=== PATIENT | male | born 1960 | race Caucasian/White ===

== ENCOUNTER 2017-07-01 04:32 | Emergency (ER) | payer OTHER ==
[~2017-07-01] VITALS: Ht 180.3 cm; Wt 109.9 kg
[2017-07-01 04:36] VITALS: TEMP 36.8; Ht 180.3 cm; Wt 109.9 kg
[2017-07-01] MEDS ORDERED: MoRPHine SULFATE 10 MG/ML CARP/VIAL IV STA (04:52)
[2017-07-01] MEDS ORDERED: ONDANSETRON INJ 2 MG/ML 2 ML VIAL IV STA (04:52)
[2017-07-01] MEDS ORDERED: ATOR10TA88 PO (04:57)
[2017-07-01] MEDS ORDERED: LISI-729 PO (04:57)
[2017-07-01] MEDS ORDERED: FEXO1TAB58 PO (04:58)
[2017-07-01] MEDS ORDERED: SODIUM CHLORIDE 0.9% 1000ML 1,000 ML IV ONE (05:00)
[2017-07-01 05:41] LABS: BASO % 0.2 %; BASO ABS # 0.01 K/uL (0-0.2); COMPLETE YES; EOS % 3.2 %; HEMATOCRIT 34.4 % (42-52); IG% 0.4 %; LYMPH % 23.2 %; LYMPH ABS # 1.17 K/uL (1.2-3.4); MEAN CORPUSCULAR HEMOGLOBIN 32.2 pg (25-34); MEAN CORPUSCULAR HGB CONC 34.6 g/dl (32-36); MEAN PLATELET VOLUME 9.4 fL (7.4-10.4); MONO % 9.1 %; NEUT % 63.9 %; PLATELET COUNT 193 K/uL (130-400); WHITE BLOOD COUNT 5.04 K/uL (4.8-10.8)
[2017-07-01 06:03] LABS: BUN/CREATININE RATIO 16.7 (10-20); CREATININE 0.78 mg/dl (0.60-1.40); MAGNESIUM 2.1 mg/dl (1.8-2.4); POTASSIUM 3.6 mmol/L (3.5-5.1)
[2017-07-01 06:14] LABS: ALB/GLOB RATIO 1.1 (0.9-2); THYROID STIMULATING HORMONE 2.59 uIu/ml (0.300-4.500)
[2017-07-01 06:22] LABS: PROTHROMBIN TIME (PATIENT) 10.4 SECONDS (9.0-12.0)
[2017-07-01 06:37] VITALS: BP 115/72
--- NOTE | 2017-07-01 06:38 | DIAGNOSTIC IMAGING REPORT ---
HEAD WITHOUT CONTRAST (CT) CLINICAL HISTORY: 57 years-old Male with Severe left sided headache. TECHNIQUE: Multiple axial CT images of the head were obtained without contrast. A dose lowering technique was utilized adhering to the principles of ALARA. CT DOSE: 537.48 mGy.cm COMPARISON: None. FINDINGS: No acute intracranial hemorrhage, midline shift, mass, large territorial ischemia or abnormal extra-axial collection. The calvarium is intact. The mastoid air cells, and middle ear cavities are clear. There appears to have been prior bilateral maxillary antrostomy. Moderate mucosal thickening involves the imaged maxillary and ethmoid sinuses. Bilateral sphenoid sinus disease also noted. IMPRESSION: 1. No acute intracranial abnormality. 2. Moderate paranasal sinus disease. The above report was generated using voice recognition software. It may contain grammatical, syntax or spelling errors. Electronically signed by: Jesus Ashton M.D. 07/01/2017 6:37 AM Dictated Date/Time: 07/01/2017 6:35 AM
[2017-07-01] MEDS ORDERED: HYDR-5688 PO (06:51)
[2017-07-01] MEDS ORDERED: AMOX875T PO (06:51)
[2017-07-01] MEDS ORDERED: PRED20TA2 PO (06:51)
--- NOTE | 2017-07-01 06:58 | EMERGENCY ROOM VISIT NOTE ---
History First contact with patient: 04:42 Chief Complaint: HEADACHE Stated Complaint: DOESN'T FEEL RIGHT/ HEADACHE History of Present Illness The patient is a 57 year old male who presents to the Emergency Room with complaints of headache symptoms for the past 2 hours. The patient has had vague headaches symptoms over the past week, however they have significantly intensified over the past 2 hours. The patient states his symptoms are primarily left side and central face. The patient does have some sinus issues in the past, but has not been on antibiotics recently. The patient fever or chills. No neck pain, chest pain, chest tightness, shortness of breath, or abdominal pain. The patient does not have injury or trauma. He rates his discomfort a 7/10. Review of Systems More than 10 systems were reviewed and otherwise negative with the exception of history of present illness. Past Medical/Surgical History History of dyslipidemia and hypertension Family History No pertinent family history Social History Smoking Status: Never Smoker Housing Status: lives with significant other Occupation Status: employed Current/Historical Medications Scheduled Amoxicillin & Pot Clavulanate (Augmentin 875-125 mg), 1 TAB PO BID Atorvastatin (Lipitor), 1 TAB PO DAILY Fexofenadine-Pseudoephedrine (Jenniffer-D 24 Hour Allergy), 1 TAB PO DAILY Lisinopril (Zestril), 1 TAB PO DAILY Prednisone (Prednisone Tab), 2 TAB PO DAILY Scheduled PRN Hydrocodone/Acetaminophen 5MG/325MG ([place] 5MG/325MG), 1 TABLET PO Q6 PRN for Pain Physical Exam Vital Signs Date Time Temp Pulse Resp B/P (MAP) Pulse Ox O2 Delivery O2 Flow Rate FiO2 07/01/17 06:37 66 18 115/72 98 Room Air 07/01/17 04:36 36.8 61 18 143/95 97 Room Air Physical Exam VITALS: Vitals are noted on the nurse's note and reviewed by myself. Vital signs stable. GENERAL: Well-developed, well-nourished, white male, who is in no acute distress and resting comfortably. Patient is cooperative with the examination. HEAD: Normocephalic atraumatic. EARS: External ear normal. External auditory canals clear, tympanic membranes pearly matson without erythema or effusion bilaterally. EYES: Pupils equal round and reactive to light and accommodation. Conjunctivae without injection, sclerae without icterus. Extraocular movements intact. NOSE: Patent, turbinates without inflammation or discharge. MOUTH: Mucous membranes moist. Tonsils are not enlarged. Pharynx without erythema, blood, or exudate. Uvula midline. Airway patent. NECK: Supple without nuchal rigidity. No lymphadenopathy. No thyromegaly. Cervical spine is nontender. No meningismus. HEART: Regular rate and rhythm without murmurs gallops or rubs. LUNGS: Clear to auscultation bilaterally without wheezes, rales or rhonchi. No retractions or accessory muscle use. ABDOMEN: Positive normal bowel sounds x 4. Soft, nontender, without masses or organomegaly. No guarding or rebound tenderness. MUSCULOSKELETAL: No muscle atrophy, erythema, or edema noted. Full range of motion without joint tenderness in all extremities. NEURO: Patient was alert and oriented to person place and time. CN II through XII grossly intact. Medical Decision & Procedures ER Provider Diagnostic Interpretation: HEAD WITHOUT CONTRAST (CT) CLINICAL HISTORY: 57 years-old Male with Severe left sided headache. TECHNIQUE: Multiple axial CT images of the head were obtained without contrast. A dose lowering technique was utilized adhering to the principles of ALARA. CT DOSE: 537.48 mGy.cm COMPARISON: None. FINDINGS: No acute intracranial hemorrhage, midline shift, mass, large territorial ischemia or abnormal extra-axial collection. The calvarium is intact. The mastoid air cells, and middle ear cavities are clear. There appears to have been prior bilateral maxillary antrostomy. Moderate mucosal thickening involves the imaged maxillary and ethmoid sinuses. Bilateral sphenoid sinus disease also noted. IMPRESSION: 1. No acute intracranial abnormality. 2. Moderate paranasal sinus disease. Laboratory Results 07/01/17 05:01 Red Blood Count 3.70, Mean Corpuscular Volume 93.0, Mean Corpuscular Hemoglobin 32.2, Mean Corpuscular Hemoglobin Concent 34.6, Mean Platelet Volume 9.4, Neutrophils (%) (Auto) 63.9, Lymphocytes (%) (Auto) 23.2, Monocytes (%) (Auto) 9.1, Eosinophils (%) (Auto) 3.2, Basophils (%) (Auto) 0.2, Neutrophils # (Auto) 3.22, Lymphocytes # (Auto) 1.17, Monocytes # (Auto) 0.46, Eosinophils # (Auto) 0.16, Basophils # (Auto) 0.01 8/22/17 05:01 Test 07/01/17 05:01 07/01/17 05:09 White Blood Count 5.04 K/uL (4.8-10.8) Red Blood Count 3.70 M/uL (4.7-6.1) Hemoglobin 11.9 g/dL (14.0-18.0) Hematocrit 34.4 % (42-52) Mean Corpuscular Volume 93.0 fL (80-100) Mean Corpuscular Hemoglobin 32.2 pg (25-34) Mean Corpuscular Hemoglobin Concent 34.6 g/dl (32-36) Platelet Count 193 K/uL (130-400) Mean Platelet Volume 9.4 fL (7.4-10.4) Neutrophils (%) (Auto) 63.9 % Lymphocytes (%) (Auto) 23.2 % Monocytes (%) (Auto) 9.1 % Eosinophils (%) (Auto) 3.2 % Basophils (%) (Auto) 0.2 % Neutrophils # (Auto) 3.22 K/uL (1.4-6.5) Lymphocytes # (Auto) 1.17 K/uL (1.2-3.4) Monocytes # (Auto) 0.46 K/uL (0.11-0.59) Eosinophils # (Auto) 0.16 K/uL (0-0.5) Basophils # (Auto) 0.01 K/uL (0-0.2) RDW Standard Deviation 42.4 fL (36.4-46.3) RDW Coefficient of Variation 12.6 % (11.5-14.5) Immature Granulocyte % (Auto) 0.4 % Immature Granulocyte # (Auto) 0.02 K/uL (0.00-0.02) Prothrombin Time 10.4 SECONDS (9.0-12.0) Prothromb Time International Ratio 1.0 (0.9-1.1) Activated Partial Thromboplast Time 25.8 SECONDS (21.0-31.0) Partial Thromboplastin Ratio 1.0 Anion Gap 7.0 mmol/L (3-11) Est Creatinine Clear Calc Drug Dose 130.1 ml/min Estimated GFR () 115.3 Estimated GFR (Non- 99.5 BUN/Creatinine Ratio 16.7 (10-20) Calcium Level 8.0 mg/dl (8.5-10.1) Magnesium Level 2.1 mg/dl (1.8-2.4) Total Bilirubin 0.2 mg/dl (0.2-1) Aspartate Amino Transf (AST/SGOT) 22 U/L (15-37) Alanine Aminotransferase (ALT/SGPT) 35 U/L (12-78) Alkaline Phosphatase 85 U/L (45-117) Total Protein 6.5 gm/dl (6.4-8.2) Albumin 3.4 gm/dl (3.4-5.0) Globulin 3.1 gm/dl (2.5-4.0) Albumin/Globulin Ratio 1.1 (0.9-2) Thyroid Stimulating Hormone (TSH) 2.590 uIu/ml (0.300-4.500) Bedside Troponin I < 0.030 ng/ml (0-0.045) Medications Administered Medications (Trade) Dose Ordered Sig/Aletha Route Start Time Stop Time Status Last Admin Dose Admin Morphine Sulfate (MoRPHine SULFATE INJ) 8 mg NOW STAT IV 07/01/17 04:52 07/01/17 04:55 DC 07/01/17 05:02 8 MG Sodium Chloride 1,000 ml @ 999 mls/hr Q1H1M ONCE IV 07/01/17 05:00 07/01/17 06:00 DC 07/01/17 05:02 999 MLS/HR Ondansetron HCl (Zofran Inj) 4 mg NOW STAT IV 07/01/17 04:52 07/01/17 04:55 DC 07/01/17 05:02 4 MG ED Course Physical exam and history were performed. Nursing notes, EMR, and Medication List were personally reviewed. Patient appears to have left-sided headache symptoms that are acutely worse over the past 2 hours. The patient is not well known to us, and certainly does not appear toxic on examination. He does not have signs of meningitis or encephalitis. Because of his symptoms I did elect to establish IV access and draw labs. CT scan was performed. The patient was hydrated and medicated as above. The patient's blood work is as above and was reviewed. He does not have a significantly elevated white blood cell count, her significant, bandemia, or significant electrolyte imbalance. Transaminases are nondiagnostic. Troponin was negative. CT scan does not show a bleed or mass. He does have a relatively significant sinus disease, including findings in the ethmoid sinus. I discussed case with attending physician, Dr. Hall. The patient does seem stable for discharge home and he was able to sleep quite comfortably here in the emergency department. I suspect that his symptoms are related to sinusitis , and will give him a course of Augmentin, prednisone, and Vicodin. The patient was asked to follow with his PCP in the next few days for recheck. Certainly minimal to the ER with any new, worsening, or concerning symptoms. The chart was completed utilizing [employer] Speech Voice Recognition Software. Grammatical errors, random word insertions, pronoun errors, and incomplete sentences are an occasional consequence of this system due to software limitations, ambient noise, and hardware issues. Any formal questions or concerns about the content, text, or information contained within the body of this dictation should be directly addressed to the provider for clarification. . Medical Decision The differential diagnosis includes, but is not limited to: acute intracranial bleed, meningitis, encephalitis, mass or mass effect, sinusitis, infection, tumor, headache, temporal arteritis and carbon monoxide exposure, and migraine. Medication Reconcilliation Current Medication List: was personally reviewed by me Blood Pressure Screening Blood pressure disposition: Elevated BP felt to be situational Impression Primary Impression: Headache Additional Impression: Sinusitis Departure Information Dispostion Home / Self-Care Condition GOOD Prescriptions Hydrocodone/Acetaminophen 5MG/325MG ([place] 5MG/325MG) Tab 1 TABLET PO Q6 Y for Pain, #12 TAB For Initial Treatment Prov: Chato Golden PA-C 07/01/17 Prednisone (Prednisone Tab) 20 Mg Tab 2 TAB PO DAILY for 5 Days, #10 TAB Prov: Chato Golden PA-C 07/01/17 Amoxicillin & Pot Clavulanate (Augmentin 875-125 mg) 1 Tab Tab 1 TAB PO BID for 10 Days, #20 TAB Prov: Chato Golden PA-C 07/01/17 Forms HOME CARE DOCUMENTATION FORM, IMPORTANT VISIT INFORMATION Patient Instructions My [facility] Additional Instructions You were seen and evaluated today on an emergency basis only. This is not a substitute for, or an effort to provide, complete comprehensive medical care. It is not possible to recognize and treat all injuries or illnesses in a single emergency department visit. For this reason it is recommended that you followup with your primary care physician this week for ongoing care and evaluation. Amoxicillin Clavulanate (Augmentin) 875mg: Take one pill twice daily for 10 days for your infection. All antibiotics can cause diarrhea. If this occurs and you feel worse or it does not resolve in 1-2 days follow up with your doctor or return to the Emergency Department as this could be signs of serious underlying problems. Any medication can cause an allergic reaction, stop the pills immediately and return to the ER for rash, hives, breathing difficulties, or swelling. Take prednisone daily for the next 5 days. For baseline pain relief you may alternate ibuprofen and acetaminophen every 4 hours for pain control. Take 600 mg ibuprofen (Advil) and then 4 hours later take 1000 mg acetaminophen (Tylenol). Do not take more than 3000 mg acetaminophen in a single day. [place] (hydrocodone/acetaminophen) 5/325 mg every 6 hours as needed for worsening breakthrough pain. Do not drink or drive on [place]. This medication will likely make you tired. Do not take [place] and Tylenol at the same time as both contain acetaminophen. [place] may cause constipation. You may wish to take an [id number]-[id number]-albpxyl stool softener like Colace if this occurs. You are welcome to return to the emergency department anytime with new, worsening, or concerning symptoms. Problem Qualifiers
[2017-07-01 07:00] LABS: LYME DISEASE AB IGG NEG (NEG); LYME DISEASE AB IGM NEG (NEG)
[2017-07-01 07:03] VITALS: PULSE 58; O2SAT 96
== END 2017-07-01 07:04 | disposition home or self-care (01) ==
LOC: C.EDB 04:33
DX: J32.9 Chronic sinusitis, unspecified (principal); E78.5 Hyperlipidemia, unspecified; I10 Essential (primary) hypertension; Z79.899 Other long term (current) drug therapy

== ENCOUNTER 2024-07-25 16:55 | Observation (INO) ==
--- OUTSIDE RECORDS SUMMARY | 2024-07-25 17:01 | External Medical Summary | Summary of Care ---
Author Name Unknown Organization [facility] Address [address] [place] [address] Phone [phone] Care Team Providers Care Tube Backer Name Role Phone Ladarius Martinez DO Primary Care Provider [phone] Reason for Visit * Reason Onset Date Comments Appointment 07/23/2024 Encounter Details Date Type Department Care Team (Late st Contact Info) Description 07/23/2024 Telephone Family Practice [facility] [place] [address] [facility] [place] [address] Ladarius Martinez DO [address] [facility] [place] [address] Appointment Allergies Active Allergy Reactions Criticality Noted Date Comments Cat Dander 12/07/2015 Pollen 12/07/2015 documented as of this encounter (statuses as of 07/23/2024) Medications Medication Sig Dispensed Refills Start Date End Date Status ASPIRIN 81 MG PO TABS one pill each day 05/17/2014 Active Multiple Vitamins-Minerals (MULTIVITAMIN ADULT EXTRA C) CHEW 11/26/2018 Active Sildenafil Citrate 20 MG Oral Tablet (Revatio)Indications:Vascu logenic erectile dysfunction, unspecified vasculogenic erectile dysfunction type Use 1-5 tablets as needed as directed for ED./ No more then 5 tablets in 1 day 30 Tab 3 08/20/2021 Active Testosterone Cypionate 200 MG/ML Intramuscular Solution (Depotestosterone Cypionate) Inject into a large muscle 200 mg every 30 days . 1 mL 5 09/05/2022 Active Tadalafil 5 MG Oral Tablet (Cialis) Take 1 Tablet by mouth daily as needed for Erectile Dysfunction. 30 Tablet 6 12/20/2022 Active diazePAM 2 MG Oral Tablet (Valium)Indications:Primar y insomnia TAKE 1 TABLET BY MOUTH AT BEDTIME NEEDED FOR ANXIETY OR SLEEP. 30 Tablet 02/10/2023 Active Fexofenadine HCl 180 MG Oral Tablet (Jenniffer) Take 1 Tablet by mouth in the morning. Active Losartan Potassium 50 MG Oral Tablet (Cozaar) Take 1 Tablet by mouth in the morning and 1 Tablet before bedtime. 03/27/2023 Active Amoxicillin-Pot Clavulanate 875-125 MG Oral Tablet (Augmentin)Indications:Acu te sinusitis, recurrence not specified, unspecified location Take 1 Tablet by mouth in the morning and 1 Tablet before bedtime. 20 Tablet 01/14/2024 Active Acetaminophen-Codeine 300-30 MG Oral Tablet Take 1 Tablet by mouth every 4 hours as needed for Moderate Pain. May take 2 tablets for severe pain. 10 Tablet 1 01/14/2024 Active Pravastatin Sodium 40 MG Oral Tablet (Pravachol)Indications:Pur e hypercholesterolemia TAKE 1 TABLET BY MOUTH EVERY DAY 90 Tablet 1 06/24/2024 Active Hospital, Clinic, or Other Facility Administered Medication Ordered Dose Route Frequency Start Date End Date Status Testosterone Cypionate (Depotestosterone Cypionate) 200 MG/ML inj 200 mgIndications:Low testosterone in male 200 mg IM [id number] 11/01/2022 10/20/2024 Acti ve Testosterone Cypionate (Depotestosterone Cypionate) 200 MG/ML inj 200 mgIndications:Low testosterone in male 200 mg IM [id number] 10/07/2023 09/26/2025 Acti ve documented as of this encounter (statuses as of 07/23/2024) Active Problems Problem Noted Date Diagnosed Date Digital mucinous cyst of finger of right hand Prediabetes 12/23/2017 Overview: Per Prediabetes protocol #1 Pure hypercholesterolemia 09/25/2016 Obesity, Class I, BMI 30.0-34.9 (see actual BMI) 08/22/2015 Overview: bmi= 33.34 08/22/15 Dyslipidemia, goal LDL below 100 08/22/2015 Chronic rhinitis 08/22/2015 Neoplasm of uncertain behavior of skin 5 Actinic keratosis 12/24/2012 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 The worse level is L4-5 where he has a right-sided lateral disk protrusion. HTN, goal below 140/90 documented as of this encounter (statuses as of 07/23/2024) Resolved Problems Problem Noted Date Diagnosed Date Resolved Date Pain in the shins 08/22/2015 09/23/2016 Routine medical exam 05/17/2014 016 Obesity, Class I, BMI 30.0-3 4.9 (see actual BMI) 03/25/2013 09/23/2016 Overview: BMI= 33.35 03/25/13 Screening for colorectal cancer 03/25/2013 09/23/2016 Special screening for malign ant neoplasm of prostate 03/25/2013 09/23/2016 Chronic sinusitis 10/09/2012 08/22/2015 Dysfunction of eustachian tube 10/09/2012 09/23/2016 Obesity, Class I, BMI 30.0-3 4.9 (see actual BMI) 09/17/2012 09/23/2016 Overview: bmi= 33.08 09/17/12 Obesity, Class I, BMI 30.0-3 4.9 (see actual BMI) 09/17/2012 09/23/2016 Overview: bmi= 33.08 09/17/12 Testicular hypofunction 09/17/201207/12 Obesity, BMI 33.58 09/23/11 09/23/2011 09/23/2016 Screening for prostate cancer 09/23/2011 09/23/2016 Vaccination not carried out because of patient refusal 09/23/2011 08/22/2015 Testicular hypofunction 03/27/201006/2012 OBESITY, BMI= 33.43 03/26/10 03/26/2010 09/23/2016 Special screening for malign ant neoplasms, colon 03/26/2010 08/22/2015 Organic sleep disorder 03/26/201008/22 OBESITY, BMI 30-34 (SEE ACTUAL BMI) 02/01/2010 09/23/2016 Overview: Per Obesity Taxonomy Dyslipidemia, goal to be determined 10/26/2009 03/26/2010 Overview: Per Lipid Taxonomy. first dx'd in . started lipitor 10 on 11/14. 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 ELEV TRANSAMINASE-LDH 11/19/20042014 Overview: possibly related to recent etho use prior to test. MIXED HYPERLIPIDEMIA(aka HYPERCHOLESTEROLEMIA) 11/19/2004 10/26/2009 Overview: Per Lipid Taxonomy. first dx'd in . started lipitor 10 on 11/14. Family history of other card iovascular diseases 11/19/2004 08/22/2015 Overview: negative, stress echo on 11/14. ICD-10 update of inactive term High-risk sexual behavior 11/19/2004 Overview: hiv negative. Mixed dyslipidemia 11/19/2004 6 Overview: DX IN documented as of this encounter (statuses as of 07/23/2024) Immunizations Name Administration Dates Next Due COVID-19 mRNA, LNP-s, No Pre serve, 2-Dose Series (Pfizer) 02/15/2021,01/25/2021 Seasonal Influenza, PF, 6 M & above, IM , (FluLaval or Fluzone) 07/28/2020,09/05/2017 Seasonal Influenza, Quadrivalent, No Preserve, I M 09/23/2016,08/22/2015 Seasonal Influenza, Trivalen t, (IIV3), with Preserv, (Fluzone) 09/17/2012,09/23/2011 TDAP (age 10 and older)(Boostrix) 07/06/2021 TDAP, Age 7 and older, IM (Adacel) 03/26/2010 documented as of this encounter Social History Tobacco Use Types Packs/Day Years Used Date Smoking Tobacco: Never Smokeless Tobacco: Never Alcohol Use Standard Drinks/Week Comments Yes 0 (1 standard drink = 0.6 oz pure alcohol) 1 bottles of wine per week, 2 beers per week PHQ-2 Answer Date Recorded PHQ-2 Score 0 09/16/2018 Utilities Answer Date Recorded Do you have trouble paying y our heating, water, or electric bill? (Adult - for ages 18 years and over) Not on file 04/27/2024 Is your family able to pay t he heat, water, or electric bill? (Household - for ages 0-17 years) Not on file 04/27/2024 Does your family have access to good internet? (Household - for ages 0-17 years) Not on file 04/27/2024 Social Connections Answer Date Recorded How often do you feel lonely or isolated from those around you? (Adult - for ages 18 years and over) Not on file 04/27/2024 Sex and Gender Information Value Date Recorded Sex Assigned at Not on file Gender Identity Not on file Sexual Orientation Not on file Job Start Date Occupation Industry Not on file Not on file Not on file documented as of this encounter Miscellaneous Notes * Telephone Encounter - Ladarius Martinez DO - 07/23/2024 2:57 PM EDT Excellent advice * Telephone Encounter - Claudia Kirk RN - 07/23/2024 2:37 PM EDT Provider to address: called and spoke with patient. Patient on way home from [place], would like to be evaluated for what he thinks is a hernia at his belly button. Patient states it's been there for about a month or so but in the last 3 days has gotten bigger and painful when he moves and hasgotten more red at the sight. 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 I advised patient that CC may be best as he can walk in, patient agreeable. Reason for Call: Appointment Contact: Telephone Call Contact Type: Advice Provider In-Basket: No Outcome: see above Face to face time spent with Patient (minutes): 0 Total Time including non face to face (minutes): 20 * Telephone Encounter - Ericka Escalona OSA - 07/23/2024 1:09 PM EDT No Appointments Available Patient declined appointments?: No What Visit Type is needed? Acute If Acute Visit Type is needed, were surrounding clinics offered to patient (Yes/No)? No, explain Noappts avail anywhere Was patient offered appointments with other available providers (Yes/No)? No, explain No appts Avail See Call Details? (Yes or No): Yes documented in this encounter Plan of Treatment Scheduled Procedures Name Priority Associated Diagnoses Date/Ti me COLONOSCOPY FLEXIBLE PROXIMAL DIAGNOSTIC Recall History of colon polyps Health Maintenance Due Date Last Done Comments Albumin/Creatinine Ratio 1977 Cologuard 2004 Fecal Occult Blood Test 2004 Sigmoidoscopy 2004 Zoster Vaccines (1 of 2) 2009 Depression Screening 06/29/2019 06/29/2018, 08/22/2015 (Discussed) GFR 05/21/2023 05/21/2022, 06/10, 07/18/2020, Additional history exists Pneumococcal Vaccine: 65+ Years (1 of 1 - PCV) 2024 HbA1c 03/27/2024 03/27/2023, 05/10, 07/18/2020, Additional history exists COVID-19 Vaccine (3 - season) 2024 02/15/2021, 01/25/2021 Influenza Vaccine (FLU shot) (#1) 2024 07/28/2020, 09/05/2017, 09/23/2016, Additional history exists Colonoscopy 10/17/2026 10/17/2021, 06/2021, 08/12/2016, Additional history exists Colorectal Cancer Screening 10/17/2026 Lipid Panel 04/01/2029 04/01/2024, 05/10, 06/28/2021, Additional history exists DTap/Tdap Vaccines (3 - Td or Tdap) 07/06/2031 07/06/2021, 03/26/2010 Hepatitis B Vaccine Completed 10/16/2005, 04/11/2005, 02/26/2005 RETIRED - COLONOSCOPY-EVERY 5 YRS AGES 18-100 Discontinued 10/17/2021, 10/17/2021, 08/12/2016, Additional history exists HPV (Gardasil) Vaccine Aged Out No lo nger eligible based on patient's age to complete this topic MENINGOCOCCAL (MENACTRA/MENVEO) Aged Out No longer eligible based on patient's age to complete this topic documented as of this encounter Medical Devices Not on filedocumented as of this encounter Care Teams Tube Backer Relationship Specialty Start Date End Date Ladarius Martinez DO [address] [place] [address] PCP - General Family Medicine 2/11/16 documented as of this encounter
[2024-07-25 17:53] LABS: Basophils # (auto) 0.02 K/uL (0.00-0.20); Basophils % (auto) 0.4 %; Eosinophils # (auto) 0.06 K/uL (0.00-0.50); Eosinophils % (auto) 1.2 %; Hemoglobin 14.3 g/dl (14.0-18.0); Immature Granulocytes # (auto) 0.01 K/uL (0.01-0.20); Immature Granulocytes % (auto) 0.2 %; Lymphocytes # (auto) 1.27 K/uL (1.20-3.40); Lymphocytes % (auto) 24.4 %; Mean Corpuscular Volume 90.9 fL (80.0-100.0); Mean Platelet Volume 9.2 fL (9.4-12.4); Monocytes # (auto) 0.46 K/uL (0.11-0.59); Monocytes % (auto) 8.8 %; Neutrophils # (auto) 3.39 K/uL (1.40-6.50); Platelet Count 179 K/uL (130-400); RDW Standard Deviation 39.7 fL (36.4-46.3); Red Blood Count 4.62 M/uL (4.70-6.10); White Blood Count 5.21 K/ul (4.8-10.8)
--- NOTE | 2024-07-25 17:56 | Communication Note ---
Date of Service: July 25, 2024 patient with incarcerated umbilical hernia, offered repair friday morning, however couldn't stay. Will plan for repair tomorrow. No indication for emergent repair. Admit to medicine, npo after midnight.
--- NOTE | 2024-07-25 18:09 | Emergency Department Note ---
Impression & Plan Incarcerated umbilical hernia, Cellulitis ED Provider Note NAME: TREVA GAITAN AGE: 64 SEX: M : 1960 ARRIVES VIA: Walk-In INFORMANT: [Patient] ED PROVIDER(S): [Delfino Pryor MD] CHIEF COMPLAINT: Infection HISTORY OF PRESENT ILLNESS: The patient is a 64-year-old male who presents to the ER for a repeat evaluation. The patient was diagnosed a few days ago with an incarcerated umbilical hernia and a localized cellulitis. He was initially going to be admitted for surgery the following day however, he chose to go home as he had obligations he could not forego. The patient was prescribed Augmentin at discharge. The patient has been taking his meds as prescribed. His pain is actually improved and he feels like he has more energy. There has been no fever. No vomiting. The patient presents back today stating that he is now able to undergo admission and surgical intervention. PMHx/PSHx/Social Hx: See Below PHYSICAL EXAM: GENERAL: Patient is in no acute distress. HEENT: No acute trauma, normocephalic atraumatic, mucous membranes moist, no nasal congestion. NECK: No stridor, no adenopathy, no meningismus, trachea is midline. LUNGS: Clear to auscultation bilaterally, no wheeze, no rhonchi, breath sounds equal. HEART: Without murmurs gallops or rubs, regular rate and rhythm. ABDOMEN: Soft, patient does have an erythematous, tender umbilical protrusion. This is quite firm and warm to the touch. The size is around 3 to 4 cm. Surrounding this lesion is a localized cellulitis about 6 or 8 cm in its greatest diameter. EXTREMITIES: No cyanosis, full range of motion of all the joints without pain or difficulty. NEUROLOGIC: Oriented x 3, no acute motor or sensory deficits, no focal weakness. SKIN: No jaundice, no diaphoresis. DIFFERENTIAL DIAGNOSIS: Bowel obstruction, cellulitis, incarcerated hernia, among others. EMERGENCY DEPARTMENT PROCEDURES: MEDICAL DECISION MAKING: There is no leukocytosis or concerning anemia. There is a normal platelet count. No renal failure or significant electrolyte abnormality. Lactic acid level is not elevated making severe sepsis less likely. On exam, the patient was not febrile or toxic. He had an incarcerated umbilical hernia with some surrounding cellulitis. The patient had presented back to the ED after being seen a few days ago. His presentation was similar. The patient is in need of surgical intervention. I did speak with general surgery. The patient is to be admitted to the medical service and will likely undergo surgical intervention tomorrow. The patient was given IV saline for hydration. He received 1 L. He was given IV Zosyn as antibiotic coverage. I did speak with case management, the on-call hospitalist was consulted. Prior/Outside records/notes reviewed: None Imaging/x-ray results per my interpretation: Chronic Medical/Social conditions affecting care: Care/Management discussed with: General Surgery-Dr. Herbert. Case management and the on-call hospitalist. Level of care consideration(s): After review of the information above and other included data: --I believe the patient requires escalation of care to admission DISPOSITION: Admission Past Med/Surg History Problem List (Updated 07/25/24 @ 22:55 by Delfino Pryor MD) Cellulitis (Acute) Incarcerated umbilical hernia (Acute) Cellulitis (Acute) Incarcerated umbilical hernia (Acute) Chest tightness Atypical chest pain Coronary artery calcification Ascending aorta dilatation LVH (left ventricular hypertrophy) Hypercholesterolemia Chest pain syndrome Dyspnea on exertion Medical History Anxiety Hypertension Social History Smoking Status: Never smoker Second Hand Exposure: No; Do You Dip or Chew Tobacco: No; Tobacco Cessation Education Requested by Patient: No Hx Alcohol Use: Yes Alcohol type: beer Hx Substance Use: No Preferred Language: Egyptian Communication Ability: Effective Local Hazmat Driver Required: No Beliefs That Will Affect Care: None Current Living Situation: Significant Other Other Information That Helps Us Care for You: No Feels Safe at Home: Yes Safety Concerns: Feels Safe At This Time Assistive Devices: Glasses and Hospital Bed Allergies Allergies Allergy/AdvReac Type Severity Reaction Status Date / Time No Known Allergies Allergy Unverified 04/01/24 11:49 Home Meds Home Medications Medication Instructions Recorded Confirmed aspirin 81 mg tablet,delayed 81 mg PO DAILY 05/02/23 04/01/24 release (Adult Low Dose Aspirin) fexofenadine 180 mg tablet 180 mg PO DAILY 05/02/23 04/01/24 (Jenniffer Hives) multivitamin 1 tab PO DAILY 05/02/23 04/01/24 pravastatin 40 mg tablet 40 mg PO DAILY 05/02/23 04/01/24 sildenafil (pulm.hypertension) 20 20 mg PO TID 05/02/23 04/01/24 mg tablet (Revatio) tadalafil 5 mg tablet (Cialis) 5 mg PO DAILY PRN 05/02/23 04/01/24 testosterone cypionate 200 mg/mL 200 mg subcut Q30D 05/02/23 04/01/24 intramuscular oil (Depo-Testosterone) Previous Rx's Medication Instructions Recorded evolocumab 140 mg/mL subcutaneous 140 mg subcut .every 2 weeks #6 mL 04/01/24 pen injector (Sharmila Mclain) lorazepam 1 mg tablet 1 mg PO Q12H PRN anxiety #60 tabs 04/01/24 losartan 100 mg tablet 100 mg PO DAILY #90 tabs 06/07/24 amoxicillin 875 mg-potassium 1 tab PO BID #20 tabs 07/24/24 clavulanate 125 mg tablet Results & Data (ED) Vital Signs Vital Signs - 24 hr 07/25/24 17:04 07/25/24 17:39 07/25/24 18:22 Temperature 36.6 C Temperature Source Temporal Artery Scan Pulse Rate 80 72 Pulse Rate [Apical] 65 Pulse Strength [Apical] Normal Respiratory Rate 20 14 Respiratory Effort / Characteristics Non-Labored Spontaneous Non-Labored Spontaneous Respiratory Depth Normal Normal Respiratory Pattern Regular Blood Pressure 126/85 Blood Pressure [Left Arm] 124/71 Blood Pressure Mean 98 Blood Pressure Mean [Left Arm] 88 Pulse Oximetry 93 94 Oxygen Delivery Method Room Air Room Air Sepsis Recent Fever Within 48 Hours No Sepsis New/Unexplained Change in Mental Status No Sepsis Action Taken by Nursing No Action Required Home Medications Current Medication List: was personally reviewed by me Laboratory Data Attestation: I reviewed the patient's lab results. 07/25/24 17:31 07/25/24 17:31 Lab Results 07/25/24 Range/Units 17:31 WBC 5.21 (4.8-10.8) K/ul RBC 4.62 L (4.70-6.10) M/uL Hgb 14.3 (14.0-18.0) g/dl Hct 42.0 (42.0-52.0) % MCV 90.9 (80.0-100.0) fL MCH 31.0 (25.0-34.0) pg MCHC 34.0 (32.0-36.0) g/dL RDW Std Deviation 39.7 (36.4-46.3) fL RDW Coeff of Shayy 12.0 (11.5-14.5) % Plt Count 179 (130-400) K/uL MPV 9.2 L (9.4-12.4) fL Immature Gran % (Auto) 0.2 % Neut % (Auto) 65.0 % Lymph % (Auto) 24.4 % [place] % (Auto) 8.8 % Eos % (Auto) 1.2 % Baso % (Auto) 0.4 % Neut # (Auto) 3.39 (1.40-6.50) K/uL Lymph # (Auto) 1.27 (1.20-3.40) K/uL [place] # (Auto) 0.46 (0.11-0.59) K/uL Eos # (Auto) 0.06 (0.00-0.50) K/uL Baso # (Auto) 0.02 (0.00-0.20) K/uL Immature Gran # (Auto) 0.01 (0.01-0.20) K/uL Sodium 139 (136-145) mmol/L Potassium 4.0 (3.5-5.1) mmol/L Chloride 105 (98-107) mmol/L Carbon Dioxide 25 (21-32) mmol/L Anion Gap 9 (3-11) BUN 10 (6-23) mg/dl Creatinine 0.81 (0.6-1.4) mg/dl Est Cr Clr Drug Dosing 112.8 ml/min Est GFR ( Amer) 108.1 ml/min Est GFR (Non-Af Amer) 93.3 ml/min BUN/Creatinine Ratio 12.3 (10-20) Glucose 98 (70-99(Fasting)) mg/dl Lactate 1.0 (0.4-2.0) mmol/L Calcium 9.6 (8.6-10.3) mg/dl Administered Medications Heparin Sodium (Porcine) (Heparin Sod 5,000 Unit/0.5 Ml Vial) 5,000 units SQ Q12 AMADEO Stop: 08/24/24 20:59 Last Admin: 07/25/24 21:10 Dose: Not Given Documented By: MARICEL Sodium Chloride (Nss) 1,000 mls @ 125 mls/hr IV .Q8H AMADEO Stop: 08/24/24 19:29 Last Admin: 07/25/24 20:20 Dose: 125 mls/hr Documented By: JAMI Piperacillin Sod/Tazobactam Sod (Zosyn) 4.5 gm in 100 mls @ 25 mls/hr IV Q8H AMADEO Stop: 08/04/24 23:29 Last Admin: 07/25/24 22:35 Dose: 25 mls/hr Documented By: MARICEL Lorazepam (Lorazepam 1 Mg Tab) 1 mg PO Q12H PRN PRN Reason: anxiety Stop: 08/24/24 21:01 Last Admin: 07/25/24 21:13 Dose: 1 mg Documented By: MPS Discontinued Medications Sodium Chloride (Nss) 1,000 mls @ 999 mls/hr IV .Q1H1M ONE Stop: 07/25/24 18:01 Last Infusion: 07/25/24 19:19 Dose: Infused Documented By: Admin: 07/25/24 18:18 Dose: 999 mls/hr Documented By: JAMI Piperacillin Sod/Tazobactam Sod (Zosyn) 4.5 gm in 100 mls @ 200 mls/hr IV NOW ONE Stop: 07/25/24 18:38 Last Infusion: 07/25/24 19:19 Dose: Infused Documented By: Admin: 07/25/24 18:22 Dose: 200 mls/hr Documented By: JAMI Discharge Plan Visit Data Chief Complaint: Infection Stated Complaint: SUPPOSED TO HAVE SURG, HERNIA/INFECTED ED Provider: Delfino Pryor Discharge Problem: Incarcerated umbilical hernia, Cellulitis Patient Disposition: Admitted As Inpatient Condition: Fair Discharge Instructions Interventions: ED Discharge Assessment Last Done: 07/25/24 20:36 Discharge Problem: Cellulitis Qualifiers: Site of cellulitis: trunk Site of cellulitis of trunk: umbilicus Qualified Code(s): L03.316 - Cellulitis of umbilicus
[2024-07-25 18:10] LABS: BUN Creatinine Ratio 12.3 (10-20); Calcium 9.6 mg/dl (8.6-10.3); Creatinine Clr Calc Pharmacy 112.8 ml/min; Est GFR (African American) 108.1 ml/min; Est GFR (Non-African American) 93.3 ml/min
[2024-07-25] MEDS: SODIUM CHLORIDE 0.9% 1,000 ML IV ONE (18:18)
[2024-07-25] MEDS: PIPERACILLIN/TAZOBACTAM 4.5 GM/100 ML BAG IV ONE (18:22)
[2024-07-25] MEDS ORDERED: ACETAMINOPHEN 325 MG TAB PO PRN (19:15)
[2024-07-25] MEDS ORDERED: ONDANSETRON INJ 2 MG/ML 2 ML VIAL IV PRN (19:15)
[2024-07-25] MEDS ORDERED: MoRPHine SULFATE 2 MG/ML CARP IV PRN (19:23)
--- NOTE | 2024-07-25 19:24 | History & Physical Report ---
Date of Service July 25, 2024 Assessment & Plan (1) Incarcerated umbilical hernia: Plan #Abd pain likely 2/2 incarcerated umbilical hernia -pain control -fluids -GS consult -NPO at vt for potential surgery tomorrow -frequent abd checks #Htn, hld -home meds IVF NPO at vt Lovenox for dvt ppx History of Present Illness Chief Complaint: ABD PAIN Primary Care Provider: Ladarius Martinez, 64M pmh LVH 2/2 htn, hld who presents with acute on chronic abd pain. Was recently here for similar complaints, found to have incarcerated umbilical hernia for which he was recommended surgery. Declined at that time and is now here for surgery. Denies other symptoms including n/v, diarrhea constipation, other abdominal pain. Allergies Allergy/AdvReac Type Severity Reaction Status Date / Time No Known Allergies Allergy Unverified 04/01/24 11:49 Home Medications Medication Instructions Recorded Confirmed Type aspirin 81 mg tablet,delayed 81 mg PO DAILY 05/02/23 04/01/24 History release (Adult Low Dose Aspirin) fexofenadine 180 mg tablet 180 mg PO DAILY 05/02/23 04/01/24 History (Jenniffer Hives) multivitamin 1 tab PO DAILY 05/02/23 04/01/24 History pravastatin 40 mg tablet 40 mg PO DAILY 05/02/23 04/01/24 History sildenafil (pulm.hypertension) 20 20 mg PO TID 05/02/23 04/01/24 History mg tablet (Revatio) tadalafil 5 mg tablet (Cialis) 5 mg PO DAILY PRN 05/02/23 04/01/24 History testosterone cypionate 200 mg/mL 200 mg subcut Q30D 05/02/23 04/01/24 History intramuscular oil (Depo-Testosterone) evolocumab 140 mg/mL subcutaneous 140 mg subcut .every 2 weeks #6 mL 04/01/24 04/01/24 Rx pen injector (Repatha Jaswinderick) lorazepam 1 mg tablet 1 mg PO Q12H PRN anxiety #60 tabs 04/01/24 04/01/24 Rx losartan 100 mg tablet 100 mg PO DAILY #90 tabs 06/07/24 06/07/24 Rx amoxicillin 875 mg-potassium 1 tab PO BID #20 tabs 07/24/24 Rx clavulanate 125 mg tablet Past Med/Surg History Problem List Cellulitis (Acute) Incarcerated umbilical hernia (Acute) Chest tightness Atypical chest pain Coronary artery calcification Ascending aorta dilatation LVH (left ventricular hypertrophy) Hypercholesterolemia Chest pain syndrome Dyspnea on exertion Medical History Anxiety Hypertension Social History Smoking Status: Never smoker Preferred Language: Luxembourgish Feels Safe at Home: Yes Review of Systems Constitutional: no fever, no sweats and no malaise Gastrointestinal: + abdominal pain; no nausea, no vomiting and no constipation Physical Exam Constitutional: WD/WN, vitals as above Gastrointestinal (Abdomen): 2x2cm area of protuberance around the um bilicus, which is reducible. Larger approximately 4x4cm area of erythema surrounding that. Hernia itself is tender to palpation. Tissue appears healthy and viable. Results & Data Results & Data Vital Signs (Past 12 Hours) Vital Signs Temp Pulse Pulse Resp BP BP Pulse Ox 07/25/24 18:22 65 14 124/71 94 07/25/24 17:39 72 07/25/24 17:04 36.6 C 80 20 126/85 93 O2 Del Method 07/25/24 18:22 Room Air 07/25/24 17:39 07/25/24 17:04 Room Air Laboratory Results Abnormal lab results 07/25/24 Range/Units 17:31 RBC 4.62 L (4.70-6.10) M/uL MPV 9.2 L (9.4-12.4) fL Diagnostic Findings Laboratory Results WBC 5.21 K/ul (4.8-10.8) 07/25/24 17:31 RBC 4.62 M/uL (4.70-6.10) L 07/25/24 17:31 Hgb 14.3 g/dl (14.0-18.0) 07/25/24 17:31 Hct 42.0 % (42.0-52.0) 07/25/24 17:31 MCV 90.9 fL (80.0-100.0) 07/25/24 17:31 MCH 31.0 pg (25.0-34.0) 07/25/24 17: MCHC 34.0 g/dL (32.0-36.0) 07/25/24 17: RDW Std Deviation 39.7 fL (36.4-46.3) 07/25/24 17: RDW Coeff of Shayy 12.0 % (11.5-14.5) 07/25/24 17: Plt Count 179 K/uL (130-400) 07/25/24 17: MPV 9.2 fL (9.4-12.4) L 07/25/24 17:31 Immature Gran % (Auto) 0.2 % 07/25/24 17:31 Neut % (Auto) 65.0 % 07/25/24 17:31 Lymph % (Auto) 24.4 % 07/25/24 17:31 [place] % (Auto) 8.8 % 07/25/24 17:31 Eos % (Auto) 1.2 % 07/25/24 17:31 Baso % (Auto) 0.4 % 07/25/24 17:31 Neut # (Auto) 3.39 K/uL (1.40-6.50) 07/25/24 17:31 Lymph # (Auto) 1.27 K/uL (1.20-3.40) 07/25/24 17:31 [place] # (Auto) 0.46 K/uL (0.11-0.59) 07/25/24 17: Eos # (Auto) 0.06 K/uL (0.00-0.50) 07/25/24 17: Baso # (Auto) 0.02 K/uL (0.00-0.20) 07/25/24 17:31 Immature Gran # (Auto) 0.01 K/uL (0.01-0.20) 07/25/24 17:31 Sodium 139 mmol/L (136-145) 07/25/24 17:31 Potassium 4.0 mmol/L (3.5-5.1) 07/25/24 17:31 Chloride 105 mmol/L (98-107) 07/25/24 17:31 Carbon Dioxide 25 mmol/L (21-32) 07/25/24 17:31 Anion Gap 9 (3-11) 07/25/24 17:31 BUN 10 mg/dl (6-23) 07/25/24 17:31 Creatinine 0.81 mg/dl (0.6-1.4) 07/25/24 17:31 Est Cr Clr Drug Dosing 112.8 ml/min 07/25/24 17:31 Est GFR ( Amer) 108.1 ml/min 07/25/24 17:31 Est GFR (Non-Af Amer) 93.3 ml/min 07/25/24 17:31 BUN/Creatinine Ratio 12.3 (10-20) 07/25/24 17:31 Glucose 98 mg/dl (70-99(Fasting)) 07/25/24 17:31 Lactate 1.0 mmol/L (0.4-2.0) 07/25/24 17:31 Calcium 9.6 mg/dl (8.6-10.3) 07/25/24 17:31 Code Status & VTE Plan VTE Prophylaxis Plan VTE Prophylaxis will be ordered: Yes
[2024-07-25] MEDS: SODIUM CHLORIDE 0.9% 1,000 ML IV SCH (20:20)
[2024-07-25] MEDS: HEPARIN SOD 5,000 UNIT/0.5 ML VIAL SQ SCH (21:10)
[2024-07-25] MEDS: LORazepam 1 MG TAB PO PRN (21:13)
[2024-07-25] MEDS: PIPERACILLIN/TAZOBACTAM 4.5 GM/100 ML BAG IV SCH (22:35)
--- NOTE | 2024-07-26 06:56 | Anesthesiology Consultation ---
Date of Service July 26, 2024 Assessment & Plan Chart Review Chart Review: Acceptable Risk for Surgery and Patient NOT seen in Pre Admission Testing Consults Requested none ASA ASA3 Proposed Anesthesia Anesthesia Type: General History Surgery Operation Date: 07/26/24 09:40 Proposed Procedures p Open Umbilical Hernia Repair - Bam Herbert, , FACS Height/Weight Height: 5 ft 11 in Weight: 106.3 kg Allergies Allergy/AdvReac Type Severity Reaction Status Date / Time No Known Allergies Allergy Unverified 04/01/24 11:49 Medications Home Medications Medication Instructions Recorded Confirmed Last Taken aspirin 81 mg tablet,delayed 81 mg PO DAILY 05/02/23 04/01/24 Unknown release (Adult Low Dose Aspirin) fexofenadine 180 mg tablet 180 mg PO DAILY 05/02/23 04/01/24 Unknown (Jenniffer Hives) multivitamin 1 tab PO DAILY 05/02/23 04/01/24 Unknown pravastatin 40 mg tablet 40 mg PO DAILY 05/02/23 04/01/24 Unknown sildenafil (pulm.hypertension) 20 20 mg PO TID 05/02/23 04/01/24 Unknown mg tablet (Revatio) tadalafil 5 mg tablet (Cialis) 5 mg PO DAILY PRN 05/02/23 04/01/24 Unknown testosterone cypionate 200 mg/mL 200 mg subcut Q30D 05/02/23 04/01/24 Unknown intramuscular oil (Depo-Testosterone) evolocumab 140 mg/mL subcutaneous 140 mg subcut .every 2 weeks #6 mL 04/01/24 04/01/24 Unknown pen injector (Sharmila Mclain) lorazepam 1 mg tablet 1 mg PO Q12H PRN anxiety #60 tabs 04/01/24 04/01/24 Unknown losartan 100 mg tablet 100 mg PO DAILY #90 tabs 06/07/24 06/07/24 Unknown amoxicillin 875 mg-potassium 1 tab PO BID #20 tabs 07/24/24 Unknown clavulanate 125 mg tablet Active Medications Generic Name Dose Route Start Last Admin Trade Name Freq PRN Reason Stop Dose Admin Heparin Sodium (Porcine) 5,000 units 07/25/24 21:00 07/25/24 21:10 Heparin Sod 5,000 Unit/0.5 Ml Vial SQ 08/24/24 20:59 Not Given Q12 AMADEO Sodium Chloride 1,000 mls @ 125 mls/hr 07/25/24 19:30 07/26/24 02:40 Nss IV 08/24/24 19:29 125 mls/hr .Q8H AMADEO Administration Piperacillin Sod/Tazobactam Sod 4.5 gm in 100 mls @ 25 mls/hr 07/25/24 23:30 07/26/24 02:40 Zosyn IV 08/04/24 23:29 Infused Q8H AMADEO Infusion Lorazepam 1 mg 07/25/24 21:02 07/25/24 21:13 Lorazepam 1 Mg Tab PO 08/24/24 21:01 1 mg Q12H PRN Administration anxiety Past Medical History Medical History Anxiety Hypertension obese HLD Exercise / Class Metabolic Activity II 4-5 Yardwork/Stairs/Walk up hill Past Anesthesia History No Hx of Anesthesia Complications and No Family Hx of Anesthesia Complications History of PONV No Hx of PONV and No Hx of Motion Sickness Social History Smoking Status: Never smoker Do You Dip or Chew Tobacco: No Hx Alcohol Use: Yes Alcohol type: beer alcohol intake frequency: a few times a week Alcohol Intake Frequency Comment: reports he drinks a 6 pack a week Hx Substance Use: No Physical Exam Vital Signs Last Vital Signs Temp 36.6 C 07/25/24 20:50 Pulse 58 L 07/25/24 20:50 Resp 18 07/25/24 20:50 BP 145/80 H 07/25/24 20:50 Pulse Ox 98 07/25/24 20:50 O2 Del Method Room Air 07/25/24 20:50 Testing Laboratory Results 07/25/24 17:31 07/25/24 17:31 Electrocardiogram Date: 04/01/24 Findings: + NSR @ (@ 62) Echocardiogram Date: 06/07/24 EF: 55% LV Function: normal RWMA: + none Other Findings: + LVH (mod.) and + diastolic dysfunction Valvular Disease: + MR (mild) TR-mild Stress Test Date: 06/12/24 Type: exercise Findings: + WNL and + did not achieved max HR
[2024-07-26] MEDS ORDERED: PROPOFOL IV EMULSION 10 MG/ML 20 ML VIAL IV ONE (07:03)
[2024-07-26] MEDS ORDERED: SUCCINYLCHOLINE CHLORIDE 20 MG/ML 10 ML VIAL IV ONE (07:03)
[2024-07-26] MEDS: LACTATED RINGER'S 1,000 ML IV SCH (07:10)
[2024-07-26] MEDS ORDERED: ePHEDrine sulfate 50 MG/ML AMP IV PRN (07:27)
[2024-07-26] MEDS ORDERED: NALOXONE HCL 0.4 MG/1 ML VIAL/CARP IV PRN (07:27)
[2024-07-26] MEDS ORDERED: HYDROmorphone INJ 1 MG/ML SYRINGE IV PRN (07:27)
[2024-07-26] MEDS ORDERED: PROMETHAZINE HCL 6.25 MG in SODIUM CHLORIDE 0.9% 50 ML IV PRN (07:27)
[2024-07-26] MEDS ORDERED: ONDANSETRON INJ 2 MG/ML 2 ML VIAL IV PRN (07:27)
[2024-07-26] MEDS ORDERED: ATROPINE SULFATE 0.1 MG/ML 10ML SYR IV PRN (07:27)
[2024-07-26] MEDS ORDERED: LABETALOL HCL IV 5 MG/ML 20ML IV PRN (07:27)
[2024-07-26] MEDS ORDERED: FLUMAZENIL 0.1 MG/1 ML 10 ML VIAL IV PRN (07:27)
[2024-07-26] MEDS ORDERED: fentaNYL citrate PF 100 MCG/2 ML VIAL IV PRN (07:27)
[2024-07-26] MEDS ORDERED: MIDAZOLAM HCL 1 MG/ML 2ML VIAL ONE (07:30)
[2024-07-26] MEDS ORDERED: fentaNYL citrate PF 100 MCG/2 ML VIAL ONE ×3 (07:30→08:59)
--- NOTE | 2024-07-26 08:20 | Surgery Consultation ---
Date of Consultation July 26, 2024 Assessment & Plan (1) Incarcerated umbilical hernia: Incarcerated umbilical hernia plan for open umbilical hernia repair risks discussed to include but not limited to bleeding, infection, recurrence, chronic pain, damage to surrounding structures, need for future or more extensive surgery, and risks of anesthesia educated on signs and symptoms of incarceration, obstruction, and strangulation return precautions given, call with questions or concerns Likely discharge this afternoon Wound care instructions and activity restrictions reviewed Follow-up in 2 weeks in general surgery clinic Will keep on antibiotics for 1 week (2) Hypercholesterolemia: History of Present Illness Attending Physician: Radha Forrest MD History of Present Illness Patient admitted with incarcerated umbilical hernia containing fat. She has had the hernia for a while, but after returning from recent travel he noted it was larger, tender to palpation and red around it. He presented to the emergency department on Friday and a CT scan was performed that showed incarcerated fat with inflammation, but no evidence of bowel involvement or strangulation. His white count was normal. He was placed on antibiotics and offered surgery the following morning, however he preferred to return home. He presented again last night stating that he was ready to have his hernia repaired. He was admitted to the medicine service and continued on antibiotics. No prior abdominal surgery, takes a baby aspirin but not on any other blood thinners. Allergies Allergy/AdvReac Type Severity Reaction Status Date / Time No Known Allergies Allergy Unverified 04/01/24 11:49 Home Medications Medication Instructions Recorded Confirmed Type aspirin 81 mg tablet,delayed 81 mg PO DAILY 05/02/23 04/01/24 History release (Adult Low Dose Aspirin) fexofenadine 180 mg tablet 180 mg PO DAILY 05/02/23 04/01/24 History (Jenniffer Hives) multivitamin 1 tab PO DAILY 05/02/23 04/01/24 History pravastatin 40 mg tablet 40 mg PO DAILY 05/02/23 04/01/24 History sildenafil (pulm.hypertension) 20 20 mg PO TID 05/02/23 04/01/24 History mg tablet (Revatio) tadalafil 5 mg tablet (Cialis) 5 mg PO DAILY PRN 05/02/23 04/01/24 History testosterone cypionate 200 mg/mL 200 mg subcut Q30D 05/02/23 04/01/24 History intramuscular oil (Depo-Testosterone) evolocumab 140 mg/mL subcutaneous 140 mg subcut .every 2 weeks #6 mL 04/01/24 04/01/24 Rx pen injector (Sharmila Mclain) lorazepam 1 mg tablet 1 mg PO Q12H PRN anxiety #60 tabs 04/01/24 04/01/24 Rx losartan 100 mg tablet 100 mg PO DAILY #90 tabs 06/07/24 06/07/24 Rx amoxicillin 875 mg-potassium 1 tab PO BID #20 tabs 07/24/24 Rx clavulanate 125 mg tablet Patient History Medical History Anxiety Hypertension Social History Smoking Status: Never smoker Second Hand Exposure: No; Do You Dip or Chew Tobacco: No; Tobacco Cessation Education Requested by Patient: No Hx Alcohol Use: Yes Alcohol type: beer Hx Substance Use: No Preferred Language: Bahraini Communication Ability: Effective Geospatial Developer Required: No Beliefs That Will Affect Care: None Current Living Situation: Significant Other Other Information That Helps Us Care for You: No Feels Safe at Home: Yes Safety Concerns: Feels Safe At This Time Assistive Devices: Glasses and Hospital Bed Review of Systems Review of Systems: All systems reviewed & are unremarkable except as noted in HPI & below Physical Exam Constitutional: WD/WN, vitals as above + obese Respiratory: normal respiratory effort, lungs clear to auscultation Cardiovascular: RRR, no murmur, no edema Gastrointestinal (Abdomen): Percussion/Palpation: + abdomen tender (Umbilical hernia), abdomen soft and + hernia (Incarcerated umbilical hernia with some surrounding erythema); no guarding and abdomen not rigid Results & Data Vital Signs (Past 12 Hours) Vital Signs Temp Pulse Pulse Resp BP Pulse Ox O2 Del Method 07/26/24 07:02 36.5 C 63 18 167/87 H 99 Room Air 07/25/24 20:50 36.6 C 58 L 18 145/80 H 98 Room Air 07/25/24 20:35 62 18 124/76 98 Room Air Laboratory Results Laboratory Results - last 24 hr 07/25/24 17:31 WBC 5.21 RBC 4.62 L Hgb 14.3 Hct 42.0 MCV 90.9 MCH 31.0 MCHC 34.0 RDW Std Deviation 39.7 RDW Coeff of Shayy 12.0 Plt Count 179 MPV 9.2 L Immature Gran % (Auto) 0.2 Neut % (Auto) 65.0 Lymph % (Auto) 24.4 [place] % (Auto) 8.8 Eos % (Auto) 1.2 Baso % (Auto) 0.4 Neut # (Auto) 3.39 Lymph # (Auto) 1.27 [place] # (Auto) 0.46 Eos # (Auto) 0.06 Baso # (Auto) 0.02 Immature Gran # (Auto) 0.01 Sodium 139 Potassium 4.0 Chloride 105 Carbon Dioxide 25 Anion Gap 9 BUN 10 Creatinine 0.81 Est Cr Clr Drug Dosing 112.8 Est GFR ( Amer) 108.1 Est GFR (Non-Af Amer) 93.3 BUN/Creatinine Ratio 12.3 Glucose 98 Lactate 1.0 Calcium 9[address] scan was personally reviewed and interpreted on Friday and again this morning. Agree with the assessment of a incarcerated umbilical hernia with no bowel involvement. Exam(s): CT ABDOMEN + PELVIS With Contrast IV Amt: OPTIRAY 320 92ML EXAM: CT Abdomen and Pelvis With Intravenous Contrast CLINICAL HISTORY: Reason for exam: belly pain. TECHNIQUE: Axial computed tomography images of the abdomen and pelvis with intravenous contrast. CTDI is 27.6 mGy and DLP is 1484.92 mGy-cm. Automated exposure control was utilized for the study. A dose lowering technique was utilized adhering to the principles of ALARA. CONTRAST: Patient received OPTIRAY 320 92ML of IV contrast COMPARISON: No relevant prior studies available. FINDINGS: Lung bases: Unremarkable. No mass. No consolidation. ABDOMEN: Liver: Hepatic steatosis. Gallbladder and bile ducts: Contracted gallbladder. No calcified stones. No ductal dilation. Pancreas: Unremarkable. No mass. No ductal dilation. Spleen: Unremarkable. No splenomegaly. Adrenals: Unremarkable. No mass. Kidneys and ureters: Bilateral parapelvic cysts. No hydronephrosis. Stomach and bowel: Diverticulosis, without acute diverticulitis. No small bowel obstruction. No free intraperitoneal air. PELVIS: Appendix: No findings to suggest acute appendicitis. Bladder: Unremarkable. No mass. Reproductive: Unremarkable as visualized. ABDOMEN and PELVIS: Intraperitoneal space: Unremarkable. No free air. No significant fluid collection. Bones/joints: RIGHT hip arthroplasty. Degenerative changes of the spine. No acute fracture. No dislocation. Soft tissues: Fat containing a focal hernia which is edematous and measures approximately 3.1 x 3.2 cm. This is likely etiology of patient's umbilical pain. No fat containing bilateral inguinal hernias. Vasculature: Atherosclerotic changes of the aorta. No abdominal aortic aneurysm. Lymph nodes: Unremarkable. No enlarged lymph nodes. IMPRESSION: 1. Fat containing a focal hernia which is edematous and measures approximately 3.1 x 3.2 cm. This is likely etiology of patient's umbilical pain. 2. Diverticulosis, without acute diverticulitis. No small bowel obstruction. No free intraperitoneal air. PG Care Time/CCT Total # of Minutes Spent Total Time Spent with Patient: Total time spent is greater than 50% in coordination of care (as documented) at patient's floor/unit and/or counseling patient: Coding Level of Care Code 29504 IN/OBS CONSULT LVL 3,45M Diagnoses Incarcerated umbilical hernia K42.0 Hypercholesterolemia E78.00
[2024-07-26] MEDS: ceFAZolin 2000MG 2,000 MG/15 ML SYR IV ONE (08:42)
[2024-07-26] MEDS ORDERED: CISATRACURIUM BESYLATE IV SOLN 2 MG/ML 10 ML VIAL IV ONE (08:58)
[2024-07-26] MEDS ORDERED: hydrALAZINE HCL 20 MG/ML VIAL ONE (09:03)
[2024-07-26] MEDS ORDERED: GLYCOPYRROLATE 0.2 MG/ML VIAL ONE (09:06)
[2024-07-26] MEDS ORDERED: NEOSTIGMINE METHYLSULFATE 1 MG/ML 10ML VIAL ONE (09:06)
[2024-07-26] MEDS: BUPIVACAINE 0.5 % 5 MG/1 ML MPF 30ML VIAL ONE (09:18)
[2024-07-26] MEDS: BUPIVACAINE LIPOSOME 1.3% 266 MG/20 ML VIAL ONE (09:19)
--- NOTE | 2024-07-26 09:31 | Operative Report ---
PG Post Operative Report Pre & Post Diagnosis Operation Date: 07/26/24 09:40 Pre-Op Diagnosis: Incarcerated umbilical hernia Post-Op Diagnosis: Incarcerated umbilical hernia with strangulated fat I identified the patient and participated in the time-out.: Yes Procedure Operation Date: 07/26/24 09:40 Actual Procedures p Open Umbilical Hernia Repair, 2 cm, strangulated (Not Applicable) - Bam Herbert DO, JUAN Surgeon Bam Herbert DO, JUAN Volcanology Professor Doretha Ireland Estimated Blood Loss 5 Findings Consistent with Post-Op Diagnosis Specimens Umbilical hernia sac Anesthesia Type General Complications none Disposition Accompanied Patient To Recovery: No Disposition: Recovery Room Indications 64-year-old male presented to the emergency department on Friday with umbilical hernia that had increased in size and developed erythema with increased tenderness. A CT scan showed an incarcerated umbilical hernia containing fat with some mild stranding and inflammation. He was offered admission with surgery the following morning, however he elected to go home on antibiotics. He returned Friday evening and was admitted to the medicine service. Plan for open umbilical hernia repair. The risks of the procedure were discussed, all questions were answered, and the patient agreed to proceed with surgery as planned. Description of Procedure The patient was properly identified, consented, and taken to the operating room where he was placed in the supine position. General endotracheal anesthesia was induced. SCDs and a safety belt were placed. Preoperative antibiotics were administered. The patient's abdomen was prepped and draped in the standard sterile fashion. Surgical timeout was performed and all parties were in agreeme nt that this was the correct patient and procedure to be performed and we continued as planned. A curvilinear infraumbilical incision was made and deepened down to the fascia with blunt dissection. The umbilical stalk was circumferentially dissected with a Chaya, and divided below the level of the skin. Incarcerated omentum was delivered from the umbilicus and freed up of all attachments. The hernia sac appeared somewhat necrotic. This was opened and there was a small amount of necrotic omentum. This was ligated with 3-0 silk ties and excised. Hernia sac and contents were sent to pathology. A 2 cm fascial defect was encountered. The hernia was reduced. The fascia anteriorly and posteriorly was cleared of investing tissue for several centimeters. Hemostasis was achieved within the wound. I elected not to perform a mesh repair given the inflammation and necrotic fat. The hernia defect was closed primarily with interrupted 0 Nurolon sutures. The wound was irrigated and hemostasis confirmed. The umbilicus was tacked down to the fascia with 3-0 Vicryl sutures. Local anesthetic in the form of 0.5% Marcaine mixed with Exparel was injected in the fascia and along the skin inc ision. The skin was closed with interrupted 3-0 Vicryl deep dermal sutures, followed by 4-0 Monocryl running subcuticular suture. Dermabond was placed over the wound. A pressure dressing of cotton balls and 4 x 4's followed by Tegaderm was placed in the umbilicus. The patient was extubated in the operating room and taken to the PACU where he recovered without apparent incident. All sponge, instrument and needle counts were correct at the conclusion of the procedure. The patient tolerated the procedure well. The nurse practitioner was present and scrubbed for the entire the case. She was critical in positioning the patient, prepping and draping, retraction and exposure, repair of the hernia, closure the incisions, placement of the dressings. I attest to the content of the Intraoperative Record and any orders documented therein. Any exceptions are noted below.
[2024-07-26] MEDS: ceFAZolin 2,000 MG/15 ML IV PUSH IV ONE (10:22)
--- NOTE | 2024-07-26 10:26 | Anesthesiology Progress Note ---
Date of Service July 26, 2024 Anesthesia Post Procedure Vital Signs Vital Signs: Temp Pulse Pulse Pulse Resp BP BP 07/26/24 10:15 54 L 13 154/87 H 07/26/24 10:05 58 L 12 160/82 H 07/26/24 09:55 58 L 12 163/92 H 07/26/24 09:50 145/85 H 07/26/24 09:45 36.2 C L 59 L 16 171/107 H 07/26/24 07:02 36.5 C 63 18 167/87 H 07/25/24 20:50 36.6 C 58 L 18 145/80 H 07/25/24 20:35 62 18 124/76 07/25/24 18:22 65 14 124/71 07/25/24 17:39 72 07/25/24 17:04 36.6 C 80 20 126/85 Pulse Ox O2 Del Method O2 Flow Rate 07/26/24 10:15 94 Room Air 07/26/24 10:05 93 Room Air 07/26/24 09:55 98 Oxymask 6 07/26/24 09:50 07/26/24 09:45 100 Oxymask 13 07/26/24 07:02 99 Room Air 07/25/24 20:50 98 Room Air 07/25/24 20:35 98 Room Air 07/25/24 18:22 94 Room Air 07/25/24 17:39 07/25/24 17:04 93 Room Air Pain Intensity Abdomen: Pain Intensity: 0 Transfer of Care Handoff Completed per policy Notes Mental Status: alert / awake / arousable Patient Amnestic to Procedure: Yes Nausea / Vomiting: adequately controlled Pain: adequately controlled Airway Patency, RR, SpO2: stable & adequate BP & HR: stable & adequate Hydration State: stable & adequate Anesthetic Complications: no major complications apparent
[2024-07-26 10:32] LABS: Hematocrit (blood only) 37.5 % (42.0-52.0); Hemoglobin 12.8 g/dl (14.0-18.0); Mean Corpuscular Hemoglobin 31.7 pg (25.0-34.0); Mean Corpuscular Hgb Conc 34.1 g/dL (32.0-36.0); Mean Corpuscular Volume 92.8 fL (80.0-100.0); Mean Platelet Volume 8.9 fL (9.4-12.4); Platelet Count 142 K/uL (130-400); RDW Coefficient of Variation 11.9 % (11.5-14.5); RDW Standard Deviation 40.3 fL (36.4-46.3); Red Blood Count 4.04 M/uL (4.70-6.10); White Blood Count 4.51 K/ul (4.8-10.8)
[2024-07-26 10:42] LABS: BUN Creatinine Ratio 10.6 (10-20); Calcium 8.5 mg/dl (8.6-10.3); Creatinine Clr Calc Pharmacy 107.5 ml/min; Est GFR (Non-African American) 91.4 ml/min
[2024-07-26] MEDS: LOSARTAN POTASSIUM 50 MG TAB PO SCH (10:46)
[2024-07-26] MEDS: FEXOFENADINE HCL 180 MG TAB PO SCH (10:47)
[2024-07-26] MEDS: ASPIRIN 81 MG ECTAB PO SCH (10:47)
[2024-07-26] MEDS: PRAVASTATIN SOD 40 MG TAB PO SCH (10:47)
[2024-07-26] MEDS: HYDROCODONE/ACETAMOPHEN 5/325MG TAB PO PRN (12:08)
[2024-07-26 13:29] VITALS: RESP 16
[2024-07-26 13:52] VITALS: BP 156/90; PULSE 65; TEMP 97.3; O2SAT 94
--- NOTE | 2024-07-26 14:44 | Discharge Summary ---
Date of Service July 26, 2024 Admission HPI Per Admitting Provider 64M pmh LVH 2/2 htn, hld who presents with acute on chronic abd pain. Was recently here for similar complaints, found to have incarcerated umbilical hernia for which he was recommended surgery. Declined at that time and presented now for surgery. Denies other symptoms including n/v, diarrhea constipation, other abdominal pain. Admission Exam Per Admitting Provider Gastrointestinal (Abdomen): 2x2cm area of protuberance around the um bilicus, which is reducible. Larger approximately 4x4cm area of erythema surrounding that. Hernia itself is tender to palpation. Tissue appears healthy and viable. Principal Diagnosis Incarcerated umbilical hernia Status post Open umbilical hernia repair Discharge Exam Constitutional + well hydrated; no acute distress Eyes PERRL, conjunctivae normal, anicteric sclerae ENMT external ear and nose normal, oropharynx normal Respiratory normal respiratory effort, lungs clear to auscultation Cardiovascular Rate/Rhythm: regular rate and regular rhythm Gastrointestinal (Abdomen) normal bowel sounds, soft, nontender, no hepatosplenomegaly clean dressing over surgical site Musculoskeletal no cyanosis or clubbing, extremities motor strength 5/5 Neurologic PERRL, EOMI, accommodation nl, no face palsy, no dysarthria Psychiatric A+Ox3, euthymic affect Discharge Data Allergies Allergy/AdvReac Type Severity Reaction Status Date / Time No Known Allergies Allergy Unverified 04/01/24 11:49 Consultations 07/25/24 19:15 Consult General Surgery Routine 07/25/24 19:20 ED Decision to Admit Stat Procedures Performed Operation Date: 07/26/24 09:40 Actual Procedures p Open Umbilical Hernia Repair(Not Applicable) - Bam Herbert DO, FACS Hospital Course (1) Incarcerated umbilical hernia: Plan #Abd pain #Incarcerated umbilical hernia Status post Open umbilical hernia repair today Pain is controlled Patient reports he wants to go home today Patient should follow up with General surgery in 2 weeks He can continue po augmentin he just started over the weekend to complete Pain control with tylenol prn Continue other home meds for hypertension Total Time Total Time Spent Total Time Spent (In Minutes): 35 Total Time Includes: Examination of the Patient, Discharge Planning and Medication Reconciliation Discharge Plan Discharge Items Patient Disposition: Home - Self-Care Reason For Visit: INCARCERATED UMBILICAL HERNIA Discharge Diagnosis: Open umbilical hernia repair Condition on Discharge: Fair Activity: Per Instructions section Lifting: No more than 10 pounds Bathing Comment: you can shower 07/28/24. no soaking in pools or bath for 2 weeks Exercise/Sports: Wait until after follow-up appointment Driving/Machine Use: no driving if taking narcotic pain medication Non-emergency contact: Surgeon Call non-emergency contact if: you have any medication questions, your temperature is above 101.5, your wound has increased redness, your wound has increased drainage and your wound pain has increased Follow-up/Referrals: Bam Herbert DO, FACS [Physician] - (call office for follow up in 2 weeks ) Ladarius Martinez DO [Primary Care Provider] - Diet: Regular Addtl Attending Provider Instructions: You may remove your outer surgical dressing on 07/28/24. You have a cotton ball in your umbilical area and gauze over your incision. You also have surgical glue called dermabond on your surgical site incisions. You may shower with this on. This will tend to come off within a couple of weeks. Do not pick at it. You may apply ice over your incision area, 20 minutes on , 20 minutes over the next week for comfort. You may purchase Tylenol also called Acetaminophen and or Ibuprofen over the counter if needed for addition pain control over the next few days. Take per manufacturers instructions, Do not take more than 3 grams of Tylenol/ Acetaminophen in 24 hours. No driving for 1 week and no driving if taking narcotic pain medication Pending Studies at Discharge: No Stand-Alone Forms: My [employer], Smoking Cessation Medications and DC Order Prescriptions: New acetaminophen 325 mg Tablet 650 mg PO Q4H PRN (Reason: pain) Qty: 60 0RF Continued testosterone cypionate [Depo-Testosterone] 200 mg/mL oil 200 mg subcut Q30D sildenafil (pulm.hypertension) [Revatio] 20 mg tablet 20 mg PO TID Rx Instructions: administer doses at least 4-6 hours apart aspirin [Adult Low Dose Aspirin] 81 mg tablet,delayed release (DR/EC) 81 mg PO DAILY multivitamin Tablet 1 tab PO DAILY fexofenadine [Jenniffer Hives] 180 mg tablet 180 mg PO DAILY tadalafil [Cialis] 5 mg tablet 5 mg PO DAILY PRN pravastatin 40 mg tablet 40 mg PO DAILY lorazepam 1 mg tablet 1 mg PO Q12H PRN (Reason: anxiety) Qty: 60 1RF Repatha SureClick 140 mg/mL pen injector 140 mg subcut .every 2 weeks Qty: 6 3RF losartan 100 mg tablet 100 mg PO DAILY Qty: 90 3RF amoxicillin-pot clavulanate 875-125 mg tablet 1 tab PO BID Qty: 20 0RF Discharge Orders: Discharge Order (Routine); Ordered 07/26/24 Ordered By: Radha Everett/Other Patient Handouts: Hernia Surg Traditional Tx, ED Hernia (Adult) Admission Data Admit Date/Time: 07/25/24 19:15 Attending Provider: Radha Forrest I. Admit Provider: Erasmo Dillon Primary Care Provider: Ladarius Martinez Other Providers: Erasmo Dillon; Bam Herbert; Elia Yoon Other Interventions: Discharge Summary Assessment (RN) Last Done: 07/26/24 14:55
== END 2024-07-26 15:59 | disposition home or self-care (01) ==
LOC: 3N 16:55 → ED 16:55 → SUATTDRO 19:15 → 3N 20:36